=== PATIENT | female | born 1990 | race Two or more races ===

== ENCOUNTER 2019-05-17 22:00 | Emergency (ER) | payer OTHER ==
[~2019-05-17] VITALS: Ht 149.9 cm; Wt 63.6 kg
[2019-05-17 22:04] VITALS: Ht 149.9 cm; Wt 63.6 kg
[2019-05-17 22:38] LABS: BASOPHIL % 1.1 % (0-2); PLATELET COUNT 364 x10^3mcL (130-400)
[2019-05-17 22:41] LABS: RED CELL DISTRIBUTION WIDTH 15.5 % (11.5-14.5)
[2019-05-18 00:56] VITALS: BP 132/73
== END 2019-05-18 00:56 | disposition home or self-care (01) ==
LOC: ED 22:00
PROVIDERS: Emergency Medicine
DX: O02.1 Missed abortion (principal); Z3A.11 11 weeks gestation of pregnancy
CPT/HCPCS: 36415

== ENCOUNTER 2019-05-19 06:32 | Emergency (ER) | payer OTHER ==
[~2019-05-19] VITALS: Ht 149.9 cm; Wt 61.7 kg
[2019-05-19 06:37] VITALS: Ht 149.9 cm; Wt 61.7 kg
[2019-05-19 07:12] LABS: PLATELET COUNT 351 x10^3mcL (130-400)
[2019-05-19 08:51] VITALS: BP 112/61
== END 2019-05-19 08:51 | disposition home or self-care (01) ==
LOC: ED 06:32
PROVIDERS: Emergency Medicine
DX: O03.9 Complete or unspecified spontaneous abortion without complication (principal); R55 Syncope and collapse
CPT/HCPCS: 82962; J7030